=== PATIENT | male | born 1990 | race Caucasian/White ===

== ENCOUNTER 2020-10-17 12:54 | Emergency (ER) | payer OTHER ==
[~2020-10-17] VITALS: Ht 177.8 cm; Wt 97.5 kg
[2020-10-17] MEDS ORDERED: ACYCLOVIR 200200 MG PO (13:13)
[2020-10-17 13:27] LABS: ABSOLUTE EOSINOPHILS 0.2 thou/uL (0.0-0.7); ABSOLUTE LYMPHOCYTES 2.1 thou/uL (0.8-5.3); ABSOLUTE MONOCYTES 0.5 thou/uL (0.0-1.2); ABSOLUTE NEUTROPHILS 3.3 thou/uL (1.6-8.1); BASOPHILS 0.4 %; EOSINOPHILS 2.8 %; LYMPHOCYTES 34.6 %; MCH 29.9 pg (26.0-34.0); MCHC 34.2 g/dL (28.0-37.0); MCV 87.4 fL (80.0-100.0); MONOCYTES 7.7 %; NUCLEATED RBCS 0 /100WBC; PLATELET COUNT* 240 thou/uL (150-400); POLYS 54.5 %; RBC 4.69 mil/uL (4.50-6.00); RDW-CV 13.4 % (10.5-14.5); WBC 6.1 thou/uL (4.0-11.0)
[2020-10-17 13:30] LABS: CALCIUM 8.5 mg/dL (8.5-10.1)
[2020-10-17 13:35] LABS: ALBUMIN 3.7 g/dL (3.4-5.0); TOTAL BILIRUBIN 0.5 mg/dL (<0.1-1.0); TOTAL PROTEIN 6.4 g/dL (6.4-8.2)
[2020-10-17 13:55] VITALS: BP 112/64
== END 2020-10-17 13:56 | disposition home or self-care (01) ==
LOC: M.ERS 12:54
PROVIDERS: Physician Assistant
DX: R43.9 Unspecified disturbances of smell and taste (principal); R19.7 Diarrhea, unspecified; Z20.828 Contact with and (suspected) exposure to other viral communicable diseases

== ENCOUNTER 2020-11-16 21:16 | Emergency (ER) | payer OTHER ==
[~2020-11-16] VITALS: Ht 175.3 cm; Wt 98.9 kg
[~2020-11-16 21:16] MED LIST: ACYCLOVIR 200200 MG PO
[2020-11-16] MEDS ORDERED: VALTREX1000 MG PO (22:06)
[2020-11-16 22:10] VITALS: BP 130/65
== END 2020-11-16 22:10 | disposition home or self-care (01) ==
LOC: M.ERS 21:16
DX: B00.1 Herpesviral vesicular dermatitis (principal)

== ENCOUNTER 2021-10-05 15:04 | Emergency (ER) | payer OTHER ==
[~2021-10-05 15:04] MED LIST changes: +VALTREX1000 MG PO
[2021-10-05 15:09] VITALS: BP 0/0
== END 2021-10-05 15:11 | disposition left against medical advice (07) ==
LOC: M.ERS 15:04
DX: R43.8 Other disturbances of smell and taste (principal); Z53.21 Procedure and treatment not carried out due to patient leaving prior to being seen by health care provider